=== PATIENT | male | born 1975 | race Caucasian/White ===

== ENCOUNTER 2019-07-06 23:00 | Emergency (ER) | payer SELFPAY ==
[2019-07-06 23:02] VITALS: BP 125/74; PULSE 68; RESP 18; TEMP 36.6; O2SAT 100; BMI 17.6
--- NOTE | 2019-07-06 23:22 | W.ED.EXTPRO ---
HPI - Extremity Problem General: Chief complaint: Extremity Injury, Upper Stated complaint: FISH HOOK IN FINGER Time Seen by Provider: 07/06/19 23:06 Source: patient Mode of arrival: ambulatory Limitations: no limitations History of Present Illness: HPI Narrative: Patient comes in for a fishhook embedded into the right index finger. Patient reports tetanus shot is up-to-date. Patient denies any other injury or complaints. Review of Systems General: Reports: 10 or more systems reviewed and unremarkable except in HPI and below Skin/Breast: Reports: other (fish hook finger) [facility] ED PFSH: Social History Smoking and tobacco status: current every day smoker Physical Exam Const: COMMON NORMALS: no apparent distress and oriented x3 GENERAL APPEARANCE: cooperative HENMT: COMMON NORMALS: normocephalic, external ears normal, EAC's normal, TM's normal bilaterally and external nose normal HEAD & SCALP: normal to inspection and normocephalic FACE & SINUS: normal facial exam NOSE: external nose normal GENERAL EAR: hearing not grossly impaired EXTERNAL EAR: Yes external ears normal EXTERNAL AUDITORY CANAL: EAC's normal TYMPANIC MEMBRANE: TM's normal bilaterally MOUTH: oral and palatal mucosa normal THROAT: posterior oropharynx normal Eye: COMMON NORMALS: PERRL and EOMs intact bilaterally PUPIL: Yes PERRL Neck/C-Spine: COMMON NORMALS: full ROM and no lymphadenopathy Lymph: LYMPHATIC: no lymphedema noted Chest: COMMONS NORMALS: inspection of chest normal and palpation of chest normal Resp: COMMON NORMALS: normal respiratory effort and clear to auscultation bilaterally AUSCULTATION: clear to auscultation bilaterally Cardio: COMMON NORMALS: regular rate and regular rhythm RATE: regular rate RHYTHM: regular rhythm GI: COMMON NORMALS: normal to inspection, nondistended, normoactive bowel sounds and non-tender : COMMON NORMALS: Yes no CVA tenderness BLADDER/KIDNEY EXAM: Yes no CVA tenderness Back/Pelvis: COMMON NORMALS: no CVA tenderness and thoracic and lumbar spine normal to inspection Extremity: COMMON NORMALS: normal to inspection GENERAL: No edema Neuro: COMMON NORMALS: oriented x3, moves all extremities and no focal motor deficits Psych: COMMON NORMALS: mental status grossly normal and cooperative Skin: NARRATIVE SKIN EXAM: fish hook right index finger Procedures Foreign Body Removal Site: right and hand (index finger) Description of foreign body: fish hook Sedation/Analgesia: other (local lidocaine) Technique: removal with forceps and incision made to facilitate removal Confirmed by:: direct visualization Complications: none Post-procedure exam: awake, alert Neurovascular: normal distal pulse, normal capillary fill, distal motor function normal and no change from pre-procedure Course Vital Signs: Vital signs: Vital Signs Temperature 97.8 F 07/06/19 23:02 Pulse Rate 68 07/06/19 23:02 Respiratory Rate 18 07/06/19 23:02 Blood Pressure 125/74 07/06/19 23:02 Pulse Oximetry 100 07/06/19 23:02 MDM - Extremity (Nontraumatic) MDM Narrative: Medical decision making narrative: Patient comes in today for concerns of fishhook in his right index finger. On exam we note a fishhook embedded into the right middle phalanx of the index finger. Patient has good range of motion of the finger. Normal cap refill distally. Vital signs are normal. Differential diagnosis includes tendon injury, retained foreign body, wound infection, need for prophylaxis tetanus. Rienzi was removed with incision and forceps. Patient tolerated well with local anesthesia. Reviewed exam for post procedure care and need for follow-up. Patient reported understanding agreed to plan. Patient did report that tetanus vaccine was up-to-date. Discharge Plan Discharge Patient Disposition: Home, Self-Care Clinical Impression: Fish hook injury of finger Qualifiers: Encounter type: initial encounter Laterality: right Qualified Code(s): S69.91XA - Unspecified injury of right wrist, hand and finger(s), initial encounter Condition: Stable Prescriptions: No Action No Known Home Medications RF: 0 Discharge Orders: Discharge Order (Routine); Ordered 07/06/19 Ordered By: Vitaly Koehler Discharge Diet: Usual diet Discharge Activity: Resume usual activity Patient Instructions: Puncture Wound (ED) Activity Restrictions/Additional Instructions: keep wound clean and dry Activity as tolerated Acetaminophen and ibuprofen for pain Follow-up as needed Discharge Date/Time: 07/06/19 23:35 Coding Level of Care Code ED Quality Assurance Specialist for Belem Escalera Exam Comprehensive
== END 2019-07-06 23:35 | disposition home or self-care (01) ==
PROVIDERS: Emergency Provider Nurse Practitioner Family
DX: S60.450A Superficial foreign body of right index finger, initial encounter (principal); F17.200 Nicotine dependence, unspecified, uncomplicated
CPT/HCPCS: 10120; 99281; 99282

== ENCOUNTER 2020-02-16 09:42 | Emergency (ER) | payer SELFPAY | END 2020-02-16 09:53 | disposition left against medical advice (07) | LOC: ER 14:24 | PROVIDERS: Emergency Provider Physician Assistant | DX: Z53.21 Procedure and treatment not carried out due to patient leaving prior to being seen by health care provider (principal) | CPT/HCPCS: 99281 ==

== ENCOUNTER 2025-04-11 20:10 | Emergency (ER) | payer BC, MEDICAID, SELFPAY ==
[2025-04-11 20:11] VITALS: BP 119/73; PULSE 121; RESP 18; TEMP 36.4; O2SAT 97; BMI 19.0
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
--- OUTSIDE RECORDS SUMMARY | 2025-04-11 20:17 | XMS_ITS | Clinical Summary ---
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
--- NOTE | 2025-04-11 20:24 | ECG_ITS ---
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 Measurements Intervals [place] Rate: 112 P: 82 MA: 166 QRS: 123 QRSD: 99 T: 81 QT: 321 QTc: 439 Interpretive Statements SINUS TACHYCARDIA RIGHT AXIS DEVIATION [QRS AXIS > 100] PATTERN CONSISTENT WITH PULMONARY DISEASE INCOMPLETE RIGHT BUNDLE BRANCH BLOCK SEPTAL MYOCARDIAL INFARCTION , OF INDETERMINATE AGE [40+ ms Q WAVE IN V1/V2] Compared to ECG 10/06/2018 20:13:18 Incomplete right bundle-branch block now present Electronically Signed On 04-13-2025 17:46:34 CUSTOMER OPERATIONS MANAGER by Siena Dumont M.D. [email or web address]
--- NOTE | 2025-04-11 20:25 | XRR_ITS ---
PROCEDURE INFORMATION: Exam: XR Chest Exam date and time: 04/11/2025 8:25 PM Age: 49 years old Clinical indication: Chest pain TECHNIQUE: Imaging protocol: Radiologic exam of the chest. Views: 1 view. COMPARISON: No relevant prior studies available. FINDINGS: Lungs: Hazy opacities in the left lung base. Pleural spaces: Unremarkable. No pleural effusion. No pneumothorax. Heart/Mediastinum: Unremarkable. No cardiomegaly. Bones/joints: Unremarkable. XR/XR chest 1V portable [id number] IMPRESSION: Hazy opacities in the left lung base may represent infection, atelectasis or aspiration. Recommend clinical correlation.
[2025-04-11] MEDS: tetanus-dipt-pertussis 0.5 mL SDV IM (21:04)
[2025-04-11 21:16] LABS: Hematocrit 43.6 % (37-53); Hemoglobin 14.80 g/dL (11.27-16.99); Mean Corpuscular HGB Conc 33.9 g/dL (30-55); Mean Corpuscular Hemoglobin 29.4 pg (27-33); Mean Corpuscular Volume 86.5 fl (82-101); Nucleated Red Blood Cells % 0 %; Platelet Count 141 10^3/cmm (157-399); Red Blood Count 5.04 10^6/uL (3.85-5.65); White Blood Count 5.42 10^3/uL (3.29-11.43)
--- NOTE | 2025-04-11 21:26 | ECG_ITS ---
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 Measurements Intervals [place] Rate: 85 P: 81 [place]: 180 QRS: 104 QRSD: 94 T: 79 QT: 348 QTc: 416 Interpretive Statements SINUS RHYTHM INCOMPLETE RIGHT BUNDLE BRANCH BLOCK SEPTAL MYOCARDIAL INFARCTION , OF INDETERMINATE AGE Indeterminate axis now present Sinus tachycardia no longer present Myocardial infarct finding still present Electronically Signed On 04-13-2025 17:44:06 TRANSACTIONAL ATTORNEY by Siena Dumont M.D. [email or web address]
[2025-04-11 21:29] LABS: Alanine Aminotransferase 73 U/L (0-41); Albumin Level 4.0 g/dL (3.5-5.2); Alkaline Phosphatase 101 U/L (40-130); Anion Gap 13.1 (5-19); Aspartate Amino Transferase 50 U/L (0-40); Blood Urea Nitrogen 15 mg/dL (6-20); Calcium 9.1 mg/dL (8.5-10.5); Carbon Dioxide 25 mmol/L (22-29); Chloride 108 mmol/L (98-107); Globulin 2.5 g/dL (1.3-4.6); Glucose 136 mg/dL (65-115); Osmolality Calculated 297 mOsm/kg (285-295); Potassium 4.1 mmol/L (3.5-5.1); Sodium 142 mmol/L (136-145); Total Protein 6.5 g/dL (6.6-8.7)
[2025-04-11 21:48] VITALS: BP 151/93; PULSE 122; RESP 16; O2SAT 95
[2025-04-11 22:20] VITALS: BP 146/89; PULSE 91; RESP 16; O2SAT 98
[2025-04-11 22:27] LABS: Troponin(5th) Baseline 8 ng/L (0-15)
[2025-04-11 22:46] LABS: Troponin 5 2HR 8.90 ng/L (0-15); Troponin 5 2HR Delta 0.90 ABS# (0-10)
[2025-04-11 23:20] VITALS: BP 146/89; PULSE 97; RESP 16; O2SAT 95
== END 2025-04-11 23:22 | disposition home or self-care (01) ==
PROVIDERS: Emergency Provider Family Medicine
DX: R07.89 Other chest pain (principal); Z72.0 Tobacco use
CPT/HCPCS: 36415; 71045; 80053; 84484; 85025; 90715; 93005; 99285; J7030